=== PATIENT | male | born 2000 | race African-American/Black ===

== ENCOUNTER 2023-12-10 22:35 | Emergency (ER) | payer OTHER ==
[~2023-12-10] VITALS: Ht 185.4 cm; Wt 121.5 kg
[2023-12-10] MEDS: FLUORESCEIN OPHTH 1MG STRIP OS ONE (23:45)
[2023-12-10] MEDS: TETRACAINE 0.5% OPHTH SOLN 4ML OS ONE (23:45)
[2023-12-10] MEDS ORDERED: ERYT5OIN25 OS (23:59)
[2023-12-11] MEDS: ERYTHROMYCIN OPHTH OINT OS ONE (00:04)
[2023-12-11 00:19] VITALS: BP 140/66; TEMP 97.8; O2SAT 96
== END 2023-12-11 00:21 | disposition home or self-care (01) ==
LOC: M ED 22:35
DX: S05.02XA Injury of conjunctiva and corneal abrasion without foreign body, left eye, initial encounter (principal); Z79.2 Long term (current) use of antibiotics; Y92.9 Unspecified place or not applicable; Y93.9 Activity, unspecified; Y99.9 Unspecified external cause status